=== PATIENT | female | born 2000 | race Caucasian/White ===

== ENCOUNTER 2025-07-09 01:56 | Emergency (ER) | payer MEDICAID, SELFPAY ==
[2025-07-09 02:00] VITALS: BP 144/74; PULSE 69; RESP 20; TEMP 36.7; O2SAT 99; BMI 43.2
--- OUTSIDE RECORDS SUMMARY | 2025-07-09 02:17 | XMS_ITS | Encounter Summary ---
Author Organization [employer] Address [address] [place] [address] Care Team Providers Care Composition Siding Worker Name Role Phone Rosalia Foster NP Primary Care Provider Encounter Details Date Type Department Care Team ([facility] st Contact Info) Description 08/06/2024 Orders Only [facility] [address] [place] [address] Diana Leach Social History Tobacco Use Types Packs/Day Years Used Date Smoking Tobacco: Never Assessed Comments Unknown Sex and Gender Information Value Date Recorded Sex Assigned at Female 08/12/2022 10:17 AM EDT Legal Sex Female 10:17 AM EDT Gender Identity Choose not to disclose 10:17 AM EDT Sexual Orientation Choose not to disclose 2021 10:17 AM EDT documented as of this encounter Plan of Treatment Not on file documented as of this encounter Procedures Procedure Name Priority Date/Time Associated Diagnosis Comments HM PAP/HPV Routine 05/08/2020 12:00 AM EDT documented in this encounter Results * HM PAP/HPV (05/08/2020 12:00 AM EDT) Pap Smear 1. NILM 1. NILM [facility] us Historical Provider HEALTH MAINTENANCE Edited Result - Final [facility] [address] [place] [address] documented in this encounter Visit Diagnoses Not on filedocumented in this encounter Care Teams Composition Siding Worker Relationship Specialty Start Date End Date Rosalia Foster NP [address] [place] [address] PCP - General Family Medicine 12/11/23 12/20/24 documented as of this encounter
--- OUTSIDE RECORDS SUMMARY | 2025-07-09 02:17 | XMS_ITS | Clinical Summary ---
Author Organization [employer] Address [address] [place] [address] Care Team Providers Care Junk Dealer Name Role Phone Unavailable Primary Care Provider Unavailabl e Allergies No known active allergies Medications budesonide-formot ed (Symbicort) 80-4.5 MCG/ACT inhalerIndication s:Mild intermittent asthma in adult without complication Take 2 puffs if needed for asthma sx, up to every 6 hours. Rinse mouth with water after use to reduce aftertaste and incidence of candidiasis. Do not swallow. 1 each 5 Active clotrimazole (Lotrimin) 1 % creamIndications: Rash Apply topically 2 times daily for 14 days. 42 g 5 07/11/20 25 Active acetaminophen (Tylenol Extra Strength) 500 MG tablet Take 1 tablet (500 mg) by mouth every 8 (eight) hours if needed for fever or moderate pain. 90 tablet 5 07/29/20 25 Active Active Problems No known active problems Encounters Date Type Department Care Team Description 06/29/2025 5:40 PM EDT Office Visit [facility] [address] [place] [id number] Adalberto Flores MD Sore throat (Primary Dx); Right ear pain 06/29/2025 Travel 06/27/2025 3:00 PM EDT Office Visit [facility] [address] [place] [phone] Eden Kulkarni ANP Rash (Primary Dx); Mild intermittent asthma in adult without complication 06/27/2025 Telephone [facility] [address] [place] [phone] Alexis Wesley MD 06/27/2025 Travel from Last 3 Months Immunizations Immunization Administration Dates Next Due DTaP 05/10/2004, 9,1998,06/26,1998 HPV, Quadrivalent 10/26/2008,05/04/2007,02/12/20 07 Hep A, ped/adol, 2 dose 09/30/2016,12/18/2015 Hep B, Adolescent or Pediatric 1998,1997,1998 Hib (HbOC) 06/26/1999, 8,1998,04/24 IPV 12/30/2005, 2,1998,06/26,1998 Influenza injectable quadriv alent IIV4 with preservative 12/11/2017 Influenza injectable quadriv alent preservative free 08/16/2016,12/04/2015,08/26/2014 MMR 01/09/2000,06/26/1999 Meningococcal MCV4P [id number]-135 12/18/2015 Meningococcal MPSV4 11/09/2009 Tdap 11/09/2009 Family History Medical History Relation Name Comments Hypertension Other Relation Name Status Comments Other Social History Tobacco Use Types Packs/Day Years Used Date Smoking Tobacco: Never Passive Smoke Exposure: Never Smokeless Tobacco: Never Tobacco Cessation:Counseling Given: Not Answered Alcohol Use Standard Drinks/Week Comments Not Asked 0 (1 standard drink = 0.6 oz pur e alcohol) occasional Comments Unknown Intention Date Recorded Ambivalent about becoming (find ing) 06/27/2025 Sex and Gender Information Value Date Recorded Sex Assigned at Female 08/12/2022 10:17 AM EDT Legal Sex Female 10:17 AM EDT Gender Identity Choose not to disclose 10:17 AM EDT Sexual Orientation Choose not to disclose 2021 10:17 AM EDT Last Filed Vital Signs Vital Sign Reading Time Taken Comments Blood Pressure 112/80 06/29/2025 5:35 PM EDT Pulse 75 06/29/2025 5:35 PM EDT Temperature 37.2 C (98.9 F) 06/29/2025 5:35 PM EDT Respiratory Rate 17 06/29/2025 5:35 PM EDT Oxygen Saturation 98% 06/29/2025 5:35 PM EDT Inhaled Oxygen Concentration - - Weight 109 kg (240 lb) 06/29/2025 5:35 PM EDT Height 157.5 cm (5' 2 ) 06/29/2025 5:35 PM EDT Body Mass Index 43.9 06/29/2025 5:35 PM EDT Plan of Treatment Health Maintenance Due Date Last Done Comments Depression Screening 1998 HIV Screening 1998 SDOH Screening 1998 Alcohol/Substance Use Screening 2010 Hepatitis C Screening 02/09/2016 Pneumococcal Vaccine: Pediatrics (0 to 5 Years) and At-Risk Patients (6 to 49) Years (1 of 2 - PCV) 2017 DTaP/Tdap/Td Vaccines (7 - Td or Tdap) 11/09/2019 11/09/2009, 05/10/2004, 06/26/1999, Additional history exists HPV/Cotest 05/08/2023 Pap Smear 05/08/2023 05/08/2020 COVID-19 Vaccine ( season) 2025 Influenza Vaccine (#1) 2025 8, 08/16/2016, 12/04/2015, Additional history exists Disability Screening 06/27/2026 06/27/2025 Family Planning (PISQ) 06/27/2026 06/27/2025 Tobacco Screening 06/29/2026 06/29/2025 Zoster Vaccines (1 of 2) 02/09/2048 RSV Patients and Patients Aged 60 years or older (1 - 1-dose 75+ series) 2073 Hepatitis B Vaccines Completed 1998, 1998, 1998 HIB Vaccines Completed 06/26/1999, 08/13, 1998, Additional history exists IPV Vaccines Completed 12/30/2005, 08/14, 1998, Additional history exists HPV Vaccines Completed 10/26/2008, 04/13, 02/11/2007 Meningococcal Vaccine Completed 12/18/2015, 010 Hepatitis A Vaccines Completed 09/30/2016, 12/18/19 16 Meningococcal B Vaccine Aged Out No l onger eligible based on patient's age to complete this topic RSV under 20 months Aged Out No longe r eligible based on patient's age to complete this topic Rotavirus Vaccines Aged Out No longer eligible based on patient's age to complete this topic Procedures Procedure Name Priority Date/Time Associated Diagnosis Comments POCT COVID-19 AG PAIGE ID NOW Routine 06/29/2025 5:44 PM EDT Sore throat POC PAIGE ID NOW STREP A Routine 06/29/2025 5:43 PM EDT Sore throat HM PAP/HPV Routine 05/08/2020 12:00 AM EDT from Last 3 Months or Most Recently Relevant to Health Maintenance Results * POCT Rapid Covid-19 PAIGE ID NOW (06/29/2025 5:44 PM EDT) Coronavirus Antigen PCR Negative Negative, Indeterminate, None Detected, Invalid, Specimen unsatisfactory for evaluation, Weakly Positive, 2+ QC Media Lot # [id number] Lot# Expiration Date , Swab 06/29/2025 5:44 PM EDT us Adalberto Flores MD POINT OF CARE TEST ENTER/EDIT OR DERABLES Final Result * POCT Rapid Strep A PAIGE ID NOW (06/29/2025 5:43 PM EDT) Rapid Strep A Screen Negative Negative, None Detected QC Media Lot # [id number] Lot# Expiration Date Swab 06/29/2025 5:43 PM EDT us Adalberto Flroes MD POINT OF CARE TEST ENTER/EDIT OR DERABLES Final Result * PAP/HPV (05/08/2020 12:00 AM EDT) Pap Smear 1. NILM 1. NILM [facility] us Historical Provider HEALTH MAINTENANCE Edited Result - Final [facility] [address] [place] [address] from Last 3 Months or Most Recently Relevant to Health Maintenance Insurance [facility] C3
--- NOTE | 2025-07-09 02:22 | PC.NURSE ---
Assumed care of pt, presents with lower back pain that radiates down the right leg, pt states the pain started tonight when she was bending over and tried to get up and felt a sharp pain, she took tylenol 500mg and motrin 600mg with no relief, aaox4, 10 pain, S/O at bedside
--- NOTE | 2025-07-09 02:58 | ED_ITS ---
HPI - Back Pain/Injury General Chief Complaint: Back Pain/Injury Stated Complaint: severe lower back pain Time Seen by Provider: 07/09/25 02:50 Source: patient Mode of arrival: ambulatory Limitations: no limitations History of Present Illness ED Provider: Dr. Jenny Ramey HPI Narrative: Patient comes to the emergency room complaining of back pain radiating towards the right lower extremity. Patient states that for 4 years she has been having back pain. However, today she was leaning down and when she stood up, she started having intense shooting pain from her lower back down the right leg. Patient denies any urinary/fecal incontinence/retention. Patient denies lower extremity weakness. Patient denies using any drugs. Patient tried ibuprofen and Tylenol at home with no relief Related Data Previous Rx's ?Medication ?Instructions ?Recorded ketorolac 10 mg tablet 10 mg PO TID PRN pain 5 days #12 07/09/25 tabs oxycodone 5 mg tablet 5 mg PO BID PRN pain #8 tabs 07/09/25 Allergies Allergy/AdvReac Type Severity Reaction Status Date / Time No Known Allergies (No Known Allergy Verified 07/09/25 02:01 Allergies*) Review of Systems Review of Systems: Constitutional : No Weight loss, No Fever, No Chills, No Night Sweats, No Fatigue, No Malaise ENT/Mouth : No Hearing loss, No Ear Pain, No Nasal Congestion, No Sinus Pain, No Hoarseness, No sore throat, No Rhinorrhea, No Swallowing Difficulty Eyes: No Eye Pain, No Swelling, No Redness, No Foreign Body, No Discharge, No Vision Changes Cardiovascular : No Chest Pain, No SOB, No Dyspnea on Exertion, No Orthopnea, No Edema, No Palpitations Respiratory : No Cough, No Sputum, No Wheezing, No Smoke Exposure, No Dyspnea Gastrointestinal : No Nausea, No Vomiting, No Diarrhea, No Constipation, No abdominal Pain, No Hematochezia, No Melena Genitourinary : no irregular bleeding, No Dysuria, No Urinary Frequency, No Hematuria, No Urinary Incontinence, No Urgency, No Flank Pain, No Urinary Flow Changes, No Hesitancy Musculoskeletal : Complaining of lower back pain radiating towards the right lower extremity. No Myalgias, No Joint Swelling Skin : No Skin Lesions, No rash Neuro : No Weakness, No Numbness, No Paresthesias, No Loss of Consciousness, No Dizziness, No Headache Psych : No Anxiety/Panic, No Depression, No SI/HI/AH/VH, No Social Issues, Heme/Lymph: No Bruising, No Bleeding,No Lymphadenopathy Endocrine : No Polyuria, No Polydipsia, No Temperature Intolerance PMFSH Social History Social History Advance Directives: No Advance Directives Information Provided: No Physical Exam Exam: Exam: Appearance: Alert. Oriented X3. No acute distress. Eyes: Pupils equal, round and reactive to light. ENT: Pharynx normal. Neck: Normal inspection. Neck supple. No lymph nodes noted. No crepitus CVS: Normal heart rate and rhythm. Pulses normal. Normal S1 and S2 Respiratory: No respiratory distress. Breath sounds normal. No Wheezing. No ra les Abdomen: Soft and nontender. No rigidity. No distention. Skin: Skin warm and dry. Normal skin color. Normal skin turgor. Back: No pain to palpation over the thoracic or lower spine. Patient has a positive straight leg raise test on the right. Extremities: No lower extremity edema. No Lacerations. No Rash Neuro: Oriented X 3. No motor deficit. No sensory deficit. Moving all extremities. No slurred speech. CN 2 through 12 grossly intact Psych: calm, cooperative, normal affect Vital Signs: Vital Signs: Last Vital Signs Temp 98.2 F 07/09/25 04:36 Pulse 65 07/09/25 04:36 Resp 18 07/09/25 04:36 BP 129/65 07/09/25 04:36 Pulse Ox 98 07/09/25 04:36 O2 Del Method Room Air 07/09/25 04:36 BMI result Body Mass Index 43.2 Course Course Course Narrative: Patient complaining of chronic back pain for 4 years but today got worse. Shoo ting sensation from the lower back is a ride Medications Administered Discontinued Medications Generic Name Dose Route Start Last Admin Trade Name Freq PRN Reason Stop Dose Admin Dexamethasone Sodium Phosphate 6 mg 07/09/25 02:57 07/09/25 03:13 Dexamethasone Sod Phosphate 4 Mg/Ml Vial IM 07/09/25 02:58 6 mg ONCE ONE Administration Hydromorphone HCl 1 mg 07/09/25 03:42 07/09/25 04:00 Hydromorphone Hcl 1 Mg/Ml Syringe IM 07/09/25 03:43 1 mg ONCE ONE Administration Protocol Ketorolac Tromethamine 60 mg 07/09/25 02:57 07/09/25 03:14 Ketorolac Tromethamine 60 Mg/2 Ml Vial IM 07/09/25 02:58 60 mg ONCE ONE Administration Medical Decision Making Medical Decision Making [facility] Narrative: I discussed the physical exam with the patient, patient likely has herniated discs versus sciatica. Patient received a dose of IM dexamethasone and ketorolac. Imaging is not indicated at this time. The patient does not have any signs or symptoms concerning for cauda equina. After IM Dilaudid, patient started feeling much better, ambulatory. Patient instructed to follow-up with the primary care physician, patient may need physical therapy and/or MRI Differential Diagnosis Differential Diagnoses: The differential diagnosis associated with the presentation includes (Sciatica, herniated disc, musculoskeletal pain) Admission/Observation Consideration of admission/observation: Escalation of care including admission/observation considered (Given patient's amount of pain, observation was considered) Critical Care Time Critical Care Time Critical Care Time: Yes Total Critical Care Time: 35 Attestation: I have personally provided critical care time. Time includes review of lab data, radiology results, discussion with consultants, and monitoring for potential decompensation. Intervention performed as documented. Discharge Plan Discharge Clinical Impression: Sciatica Patient Disposition: Home, Self-Care Instructions: Sciatica (ED), Lower Back Exercises (ED) Additional Instructions: Please follow-up with your primary care physician tomorrow. If you have any worsening or new symptoms, please return to the emergency room or call 911 Prescriptions: New ketorolac 10 mg tablet 10 mg PO TID PRN (Reason: pain) 5 Days Qty: 12 0RF oxycodone 5 mg tablet 5 mg PO BID PRN (Reason: pain) Qty: 8 0RF Rx Instructions: Partial Fill upon patient request. Bony use if ketorolac does not help alleviate the pain. Print Language: Bahraini
[2025-07-09 04:36] VITALS: BP 129/65; PULSE 65; RESP 18; TEMP 36.8; O2SAT 98
[2025-07-09 05:52] VITALS: BP 129/65; PULSE 65; RESP 18; TEMP 36.8; O2SAT 98
== END 2025-07-09 06:08 | disposition home or self-care (01) ==
PROVIDERS: Emergency Provider Emergency Medicine
DX: M54.41 Lumbago with sciatica, right side (principal); R10.31 Right lower quadrant pain; M79.604 Pain in right leg
CPT/HCPCS: 96372; 99284; J1100; J1171; J1885